=== PATIENT | male | born 1980 | race Caucasian/White ===

== ENCOUNTER 2020-12-05 13:15 | Emergency (ER) | payer OTHER ==
[~2020-12-05] VITALS: Ht 185 cm; Wt 110.0 kg
[2020-12-05] MEDS ORDERED: ACETAMINOPHEN 500 MG TAB (TYLENOL) PO ONE (13:30)
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
[2020-12-05 16:24] VITALS: BP 124/110
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
== END 2020-12-05 16:23 | disposition home or self-care (01) ==
LOC: ER 13:17
DX: S16.1XXA Strain of muscle, fascia and tendon at neck level, initial encounter (principal); S13.4XXA Sprain of ligaments of cervical spine, initial encounter; V89.2XXA Person injured in unspecified motor-vehicle accident, traffic, initial encounter
CPT/HCPCS: 70450; 71045; 72125